=== PATIENT | male | born 2000 | race African-American/Black ===

== ENCOUNTER 2021-06-19 08:23 | Emergency (ER) | payer OTHER, SELFPAY ==
--- NOTE | ~2021-06-19 | CT_ITS ---
EXAMINATION: CTA chest PE protocol DATE: 06/19/2021 11:15 INDICATION: Shortness of breath and right-sided chest pain. Wheezing. TECHNIQUE: Computed tomography (CT) pulmonary angiogram of the chest was performed with 100 mL Omnipa que-350 intravenous contrast. Additional 3D reconstructions utilizing coronal maximum intensity proje ction (MIP) were performed. Automated exposure control and iterative reconstruction technique were em ployed. The dose-length product was 544.88 mGy-cm. COMPARISON: None FINDINGS: Excellent contrast opacification of the pulmonary arteries. There is mild streak artifact from dense contrast in the superior vena cava and right atrium. Mild scattered respiratory motion artifact. Toge ther this decreases sensitivity in some of the smaller subsegmental pulmonary arteries. No pulmonary embolism identified. Scattered regions of linear and patchy groundglass opacities throughout both kiley gs with some associated architectural distortion which is most suspicious for pneumonia particularly COVID pneumonia. No pleural effusion or pneumothorax. Heart size is normal. No pericardial or pleural effusion. Mediastinal and bilateral hilar lymphadenopathy which is likely reactive. Thoracic aorta i s normal in caliber with no dissection. Visualized upper abdomen and bones are unremarkable. IMPRESSION: 1. No pulmonary embolism. Sensitivity decreased in the smaller subsegmental pulmonary arteries due sc attered mild respiratory motion artifact. 2. Patchy bilateral lung disease with appearance favoring COVID pneumonia over pulmonary edema. 3. Likely reactive mediastinal and bilateral hilar lymphadenopathy. Reviewed, dictated and finalized at location A. IMPRESSION: 1. No pulmonary embolism. Sensitivity decreased in the smaller subsegmental pul monary arteries due scattered mild respiratory motion artifact. 2. Patchy bilateral lung disease with appearance favoring COVID pneumonia over pulmonary edema. 3. Likely reactive mediastinal and bilateral hilar lymphadenopathy.
--- NOTE | ~2021-06-19 | XR_ITS ---
EXAMINATION: XR chest 1V portable EXAM DATE: 06/19/2021 09:08 INDICATION: Shortness of breath, history of COVID, pneumonia 10 days ago. TECHNIQUE: Portable AP frontal chest x-ray was obtained. There is no prior study for comparison. FINDINGS: There is moderate amount of airspace disease with relative sparing of the left upper lobe, appearance is consistent with COVID pneumonia. No pneumothorax or pleural effusion. Cardiomediastinal silhouette is normal. There are no prior studies for comparison. IMPRESSION: 1. Moderate amount of COVID pneumonia. Reviewed, dictated and finalized at location B.
[2021-06-19 08:39] VITALS: BP 147/88; PULSE 118; RESP 18; TEMP 36.6; O2SAT 98
[2021-06-19 09:06] VITALS: O2SAT 98
[2021-06-19 09:17] LABS: Fractional Inspired Oxygen 21 %; HCO3 ABG 25.6 mEq/l (22.0-26.0); Oxygen Content ABG 18.9 %vol (16.0-22.0); Oxygen Saturation ABG 94.3 % (95.0-100.0); Oxyhemoglobin 92.8 % THb (90.0-100.0); PCO2 ABG 40.8 mmHg (35.0-45.0); PO2 ABG 69.9 mmHg (80.0-100.0); PO2 FiO2 Ratio Arterial Blood 3.33 %; Total Hemoglobin 14.5 g/dL (12.0-18.0); pH ABG 7.415 (7.350-7.450)
[2021-06-19 09:18] LABS: Device ROOM AIR; Modified Allen's Test Pass; Site Drawn LEFT RADIAL
[2021-06-19 10:11] LABS: Basophils Percent Auto 0.4 % (0.2-1.2); Eosinophils Absolute Auto 0.4 K/mm3 (0-0.3); Eosinophils Percent Auto 7.1 % (0-4.4); Hematocrit 40.9 % (42.0-52.0); Hemoglobin 13.4 g/dL (14.0-18.0); Immature Granulocyte Absolute 0.04 K/mm3 (0.00-0.031); Immature Granulocyte Percent A 0.7 % (0-0.5); Lymphocytes Absolute Auto 1.59 K/mm3 (0.9-3.2); Lymphocytes Percent Auto 28.3 % (18.3-44.2); Mean Corpuscular HGB Conc 32.8 g/dl (32-36); Mean Corpuscular Hemoglobin 26.5 pg (26-34); Mean Platelet Volume 10.3 fl (7.4-10.4); Monocytes Percent Auto 17.6 % (2.6-8.5); Neutrophils Absolute Auto 2.6 K/mm3 (1.3-6.7); Neutrophils Percent Auto 45.9 % (45.5-73.1); Platelet Count Result 284 k/mm3 (150-375); Red Blood Count 5.05 M/mm3 (4.6-6.20); Red Cell Distribution Width 14.3 % (11.5-14.5); White Blood Count 5.6 K/mm3 (4.5-10.0)
[2021-06-19 10:23] LABS: D Dimer 0.72 ug/mL (<0.48)
[2021-06-19 10:25] LABS: Alanine Aminotransferase 55 U/L (4-50); Albumin Level 4.2 g/dL (3.5-5.1); Alkaline Phosphatase 74 U/L (38-126); Anion Gap 10 mmol/L (8-16); Aspartate Amino Transferase 31 U/L (17-59); Bilirubin,Total 0.6 mg/dL (0.2-1.3); Blood Urea Nitrogen 10 mg/dL (9-20); Calcium 9.5 mg/dL (8.4-10.2); Carbon Dioxide 26 mmol/L (22-30); Chloride 105 mmol/L (98-107); Estimated CRCL calculation 74 ml/min; Estimated Glomerular Filt Rate > 60; Glucose 113 mg/dL (65-110); Potassium 3.8 mmol/L (3.4-5.0); Sodium 141 mmol/L (137-145)
[2021-06-19 10:57] VITALS: BP 131/81; PULSE 97; RESP 18; O2SAT 96
--- NOTE | 2021-06-19 12:37 | ED.GENADULT ---
HPI - General Adult General Chief complaint: Upper Respiratory Infection Stated complaint: SOB, HX COVID APRIL Time Seen by Provider: 06/19/21 08:55 Source: patient Mode of arrival: ambulatory Limitations: no limitations History of Present Illness HPI narrative: Patient is 21 years old -[place] male presents with productive cough, right chest pain and shortness of breath on exertion for the last few weeks. Patient was diagnosed of COVID-19 infection last week of April. Patient been on at least 2 courses of antibiotic and the steroid without any improvement. Patient did not go to work for at least 2 weeks and would like to have a note to be off work for at least 1 week. Patient does not have family physician. Currently patient denies any fever, chills, nausea, vomiting. Related Data Home Medications Medication Instructions Recorded Confirmed guaifenesin [Mucinex] mg PO BID 06/19/21 Allergies Allergy/AdvReac Type Severity Reaction Status Date / Time No Known Allergies Allergy Verified 06/19/21 08:45 Review of Systems Review of Systems: Narrative: CONSTITUTIONAL: Denies fever, chills, or sweats. EYES: Denies visual changes, redness, or discharge. ENT: Denies rhinorrhea, congestion, sore throat, or otalgia. CARDIOVASCULAR: Denies chest pain, palpitations, or edema. RESPIRATORY: Denies cough or dyspnea. GASTROINTESTINAL: Denies abdominal pain, nausea, vomiting, or diarrhea. GENITOURINARY: Denies dysuria or hematuria. SKIN: Denies rash or itching. MUSCULOSKELETAL: Denies back pain, joint pain, or myalgia. NEUROLOGIC: Denies headache, numbness, or weakness. PSYCHIATRIC: Denies anxiety or depression. PMFSH Social History Social History Gender identity (if verbalized by the patient): Male Exam Narrative: Exam Narrative: General appearance: Well-developed, well-nourished Skin: Normal color Head: Normocephalic, nontraumatic Eyes: Clear conjunctiva ENT: Oropharynx normal, ears normal, nose normal Neck: Supple, nontender Chest and respiratory: Airway patent, no respiratory distress, no accessory muscle use, few scattered rhonchi Heart: Regular rate/rhythm Abdomen: Soft, nontender, no organomegaly, quiet bowel sounds Vascular: Normal peripheral pulses, normal capillary refill. Musculoskeletal: Normal range of motion, nontender back Neurologic: Alert and oriented ?3, [employer] is normal as tested, no gross motor deficit Course Course Emergency Course: Stable Vital Signs Vital signs: Vital Signs Temperature 36.6 C 06/19/21 08:39 Pulse Rate 118 H 06/19/21 08:39 Respiratory Rate 18 06/19/21 08:39 Blood Pressure 147/88 H 06/19/21 08:39 Pulse Oximetry 98 06/19/21 08:39 Temperature 36.6 C 06/19/21 08:39 Pulse Rate 97 06/19/21 10:57 Respiratory Rate 18 06/19/21 10:57 Blood Pressure 131/81 06/19/21 10:57 Pulse Oximetry 96 06/19/21 10:57 Medical Decision Making [facility] Narrative Medical decision making narrative: 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 Labs, chest x-ray, ABG on room air, D-dimer ordered. Further plan to follow. Work-up showed no significant abnormality required hospitalization at this time. I believe patient have persistent and residual complication of COVID-19 infection. The recommendation to go home and stay away from strenuous activity and to follow-up with his family physician. Differential Diagnosis Differential Diagnosis: Pneumonia, electrolyte imbalance, pulmonary embolism Vital Signs Vital Signs: Vital Signs Temperature 36.6 C 06/19/21 08:39 Pulse Rate 118 H 06/19/21 08:39 Respiratory Rate 18 06/19/21 08:39 Bl
[2021-06-19 12:54] VITALS: BP 129/92; PULSE 95; RESP 18; O2SAT 95
== END 2021-06-19 12:55 | disposition home or self-care (01) ==
PROVIDERS: Emergency Provider Emergency Medicine
DX: U07.1 COVID-19 (principal); J12.82 Pneumonia due to coronavirus disease 2019; R05 Cough; R07.9 Chest pain, unspecified
CPT/HCPCS: 36415; 36600; 71045; 71275; 80053; 82805; 85025; 85380; 99284; Q9967

== ENCOUNTER 2021-06-29 13:32 | Outpatient (CLI) | payer OTHER, SELFPAY ==
--- NOTE | ~2021-06-29 | XR_ITS ---
XR chest 2V DATE: 06/29/2021 14:05 INDICATION: Covid pneumonia follow-up TECHNIQUE: PA and lateral views COMPARISON: 06/19/2021 CT pulmonary scan FINDINGS: There are patchy bilateral pulmonary infiltrates involving primarily the mid and lower lung zones, left greater than right, with moderate improvement since 06/19/2021. Normal heart size. No pulmonary vascular congestion or pleural effusion or pneumothorax. IMPRESSION: Patchy bilateral pulmonary infiltrates, moderately improved since 06/19/2021 Reviewed, dictated and finalized at location B.
== END 2021-06-29 13:33 | disposition home or self-care (01) ==
PROVIDERS: PCP Emergency Medicine; Visit Provider Emergency Medicine
DX: U07.1 COVID-19 (principal); J12.82 Pneumonia due to coronavirus disease 2019
CPT/HCPCS: 71046